=== PATIENT | female | born 1950 | race Hispanic/Latino ===

== ENCOUNTER 2018-11-27 10:15 | Outpatient (CLI) | payer MEDICARE ==
--- NOTE | 2018-11-27 12:02 | Mammography Report ---
BONE DENSITY STUDY: Postmenopausal screening. DEFINITIONS: BMD = Bone Mineral Density T-score = BMD related to mean peak bone mass of young adult (mean expressed in Standard Deviation) Z-score = Age matched BMD expressed in SD World Health Organization (WHO) Diagnostic Criteria Normal T-score > -1 SD Osteopenia T-score between -1 and -2.4 SD Osteoporosis T-score -2.5 SD or below FINDINGS: The weighted average BMD of lumbar spine L1-L4 is 0.965 with a T-score of -0.8. The weighted average BMD of the left hip is 0.905 with a T-score of -0.3. The femoral neck BMD is 0.652 with a T. value score of -1.8. The overall bone density of the lumbar spine and left hip remain generally unchanged. IMPRESSION: The patient's average T-score is diagnostic for normal bone density and low relative risk for fracture. NOTE: BMD is not the only risk factor for fracture; also consider factors such as the patient's age, risk of falling, previous osteoporotic fracture, family history of osteoporotic fractures, current smoker, and low body weight. Beal's triangle is a region of interest in femur, predominantly of trabecular bone. It is not a true anatomic site, and ISCD does not recommend its use clinically.
== END 2018-11-27 10:16 | disposition home or self-care (01) ==
LOC: MAMMO 10:15
PROVIDERS: ATTEND Family Medicine
DX: Z78.0 Asymptomatic menopausal state (principal)
CPT/HCPCS: 77080

== ENCOUNTER 2021-01-15 09:58 | Outpatient (CLI) | payer MEDICARE ==
--- NOTE | 2021-01-15 11:08 | Mammography Report ---
DEXA BONE DENSITY SCAN INDICATION / CLINICAL INFORMATION: POSTMANOPAUSAL. 70 years Female COMPARISON: DEXA 11/27/2018 LUMBAR SPINE, total: - Bone mineral density (BMD) = 0.959 g/cm2. - T-score = -0.9 - Z-score = 1.4 Change (%) since most recent prior (if available): Decreased 0.7% LEFT HIP, NECK : - Bone mineral density (BMD) = 0.622 g/cm2. - T-score = -2.0 - Z-score = -0.1 Change (%) since most recent prior (if available): Decreased 5.4% IMPRESSION: 1. WHO Classification: Osteopenia. Fracture Risk: Increased. 2. 10-Year Fracture Risk (FRAX) = Major Osteoporotic 12% / Hip: 2.4% BMD Reporting Guidelines (ISCD, 2015) BMD Reporting in Postmenopausal Women and in Men Age 50 and Older - T-scores are preferred. - The WHO densitometric classification is applicable. BMD Reporting in Females Prior to Menopause and in Males Younger Than Age 50 - Z-scores, not T-scores, are preferred. This is particularly important in children. - A Z-score of -2.0 or lower is defined as below the expected range for age, and a Z-score above -2.0 is within the expected range for age. - Osteoporosis cannot be diagnosed in men under age 50 on the basis of BMD alone. - The WHO diagnostic criteria may be applied to women in the menopausal transition. http://www.iscd.org/official-positions/4715-zcbq-szfyjiue-positions-adult/ Signer Name: Juan Cuevas MD Signed: 01/15/2021 11:03 AM Workstation Name: [email or web address]
== END 2021-01-15 09:59 | disposition home or self-care (01) ==
LOC: MAMMO 09:58
PROVIDERS: ATTEND Family Medicine
DX: Z13.820 Encounter for screening for osteoporosis (principal); M85.80 Other specified disorders of bone density and structure, unspecified site; Z78.0 Asymptomatic menopausal state
CPT/HCPCS: 77080